=== PATIENT | male | born 1965 | race Caucasian/White ===

== ENCOUNTER → 2016-10-12 | Outpatient (CLI) | payer BC ==
--- NOTE | 2016-10-12 14:03 | REP ---
PA and lateral chest: Comparisons 06/28/2014. There is small round nodule like densities at the mid lung sahni bilaterally what on the right or the left. These are likely nipple artifacts has a aligned. Percent see with the location of body piercing and nipple jewelry on the comparison study. The lung sahni are clear. Cardiac size is normal. The abhi, mediastinum, and bony thorax are well. Impression: Negative PA and lateral chest Likely nipple artifacts bilaterally in the precise locations of body piercing nipple jewelry on the comparison study. Signed by Joel Erazo MD 10/12/2016 01:54 P
== END ==
LOC: M LRY 12:37
PROVIDERS: ATTEND Family Medicine
DX: J44.9 Chronic obstructive pulmonary disease, unspecified (principal)

== ENCOUNTER → 2016-10-18 | Outpatient (REF) | payer BC | LOC: M SFHCLERA 08:44 | PROVIDERS: ATTEND Family Medicine | DX: J00 Acute nasopharyngitis [common cold] (principal) ==

== ENCOUNTER 2017-04-04 10:54 | Outpatient (CLI) | payer BC ==
[~2017-04-04] VITALS: Ht 170.2 cm; Wt 95.3 kg
[~2017-04-04 10:54] MED LIST: ADVA115A INH; ALBU17IN INH
[2017-04-04] MEDS ORDERED: NS 1,000 ML IV ONE (11:00)
--- NOTE | 2017-04-04 12:53 | ROOR ---
Patient Name: Skip Gold Procedure Date: 04/04/2017 12:34 PM Date of : 1965 Age: 51 Room: [facility] Gender: Male Note Status: Finalized Procedure: Colonoscopy Indications: Screening for colorectal malignant neoplasm Providers: John FOX MD Referring MD: Emil Vivas MD Requesting Provider: Medicines: Monitored Anesthesia Care Complications: No immediate complications. Procedure: Pre-Anesthesia Assessment: - The heart rate, respiratory rate, oxygen saturations, blood pressure, adequacy of pulmonary ventilation, and response to care were monitored throughout the procedure. The Colonoscope was introduced through the anus and advanced to the cecum, identified by appendiceal orifice and ileocecal valve. The colonoscopy was performed without difficulty. The patient tolerated the procedure well. The quality of the bowel preparation was good. Findings: The perianal and digital rectal examinations were normal. Two sessile polyps were found in the sigmoid colon. The polyps were 3 to 4 mm in size. These polyps were removed with a cold snare. Resection and retrieval were complete. The exam was otherwise without abnormality on direct and retroflexion views. Impression: - Two 3 to 4 mm polyps in the sigmoid colon, removed with a cold snare. Resected and retrieved. - The examination was otherwise normal on direct and retroflexion views. Recommendation: - Telephone endoscopist for pathology results in 2 weeks. - If the pathology report reveals adenomatous tissue, then repeat the colonoscopy for surveillance in 5 years. - If the pathology report indicates hyperplastic polyp, then repeat colonoscopy for screening purposes in 10 years. John Fox MD John FOX MD 04/04/2017 12:53:06 PM This report has been signed electronically. Number of Addenda: 0 Note Initiated On: 04/04/2017 12:34 PM Estimated Blood Loss: Estimated blood loss: none.
[2017-04-04] MEDS ORDERED: PROPOFOL 500 MG/50 ML VIAL As Ordered ONE (13:06)
[2017-04-04] MEDS ORDERED: LIDOCAINE 2% INJ 100 MG/5 ML SDV (FOR ANES.) As Ordered ONE (13:06)
[2017-04-04 13:10] VITALS: BP 135/74
== END 2017-04-04 13:24 | disposition home or self-care (01) ==
LOC: M OPP 10:54
PROVIDERS: ATTEND Internal Medicine Gastroenterology
DX: Z12.11 Encounter for screening for malignant neoplasm of colon (principal); D12.5 Benign neoplasm of sigmoid colon; J45.909 Unspecified asthma, uncomplicated; Z79.899 Other long term (current) drug therapy; Z80.0 Family history of malignant neoplasm of digestive organs

== ENCOUNTER → 2017-06-07 | Outpatient (CLI) | payer BC ==
--- NOTE | 2017-06-08 06:55 | REP ---
RIGHT SHOULDER: CLINICAL: Chronic pain. TECHNIQUE: Internal rotation, external rotation, and Y view of the right shoulder. FINDINGS: Moderate arthritic degenerative changes at the acromioclavicular joint include cortical irregularity and subtle osteophyte formation as well as small well corticated loose bodies measuring up to approximately 3 mm. The subacromial space is normal. The glenohumeral joint appears intact and normal. The surrounding soft tissues are unremarkable. 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 Signed by Tahir Kan MD 06/09/2017 08:55 A
== END ==
LOC: M LRY 14:00
PROVIDERS: ATTEND Family Medicine
DX: G89.29 Other chronic pain (principal); M25.511 Pain in right shoulder; M19.011 Primary osteoarthritis, right shoulder

== ENCOUNTER → 2018-09-17 | Outpatient (REF) | payer BC ==
[2018-09-17 17:54] LABS: HEMOGLOBIN A1c 5.6 %
[2018-09-17 18:05] LABS: ALT/SGPT 33 U/L (12-78); BILIRUBIN,TOTAL 0.4 MG/DL (0.2-1.0); BLOOD UREA NITROGEN 10 MG/DL (7-18); CARBON DIOXIDE LEVEL 27 MEQ/L (21-32); CHLORIDE LEVEL 106 MEQ/L (98-107); CHOLESTEROL LEVEL 233 MG/DL (<200); CREATININE FOR GFR 0.87 MG/DL (0.70-1.30); GLOMERULAR FILTRATION RATE > 60.0 (>56); GLUCOSE, FASTING 113 MG/DL (70-100); HDL CHOLESTEROL 50 MG/DL (>40); LDL CHOLESTEROL 161 MG/DL (<100); NON-HDL-C 183 MG/DL; POTASSIUM SERUM 4.7 MEQ/L (3.5-5.1); SODIUM LEVEL 139 MEQ/L (136-145); TOTAL PROTEIN 7.5 GM/DL (6.4-8.2); TRIGLYCERIDES LEVEL 109 MG/DL (<150)
== END ==
LOC: M SFHCLERA 10:17
PROVIDERS: ATTEND Family Medicine
DX: I10 Essential (primary) hypertension (principal)

== ENCOUNTER → 2019-04-24 | Outpatient (REF) | payer BC ==
[2019-04-24 16:35] LABS: ALBUMIN 3.8 GM/DL (3.2-5.2); ALT/SGPT 29 U/L (12-78); BILIRUBIN,TOTAL 0.3 MG/DL (0.2-1.0); BLOOD UREA NITROGEN 12 MG/DL (7-18); CARBON DIOXIDE LEVEL 29 MEQ/L (21-32); CHLORIDE LEVEL 107 MEQ/L (98-107); CHOLESTEROL LEVEL 194 MG/DL (<200); CHOLESTEROL RISK RATIO 4.041 (<5); CREATININE FOR GFR 0.92 MG/DL (0.70-1.30); GLOMERULAR FILTRATION RATE > 60.0 (>56); GLUCOSE, FASTING 100 MG/DL (70-100); HDL CHOLESTEROL 48 MG/DL (>40); LDL CHOLESTEROL 125 MG/DL (<100); NON-HDL-C 146 MG/DL; POTASSIUM SERUM 4.9 MEQ/L (3.5-5.1); SODIUM LEVEL 140 MEQ/L (136-145); TOTAL PROTEIN 7.3 GM/DL (6.4-8.2); TRIGLYCERIDES LEVEL 107 MG/DL (<150)
[2019-04-24 16:52] LABS: HEMOGLOBIN A1c 5.6 %
== END ==
LOC: M SFHCLERA 11:44
PROVIDERS: ATTEND Family Medicine
DX: E78.5 Hyperlipidemia, unspecified (principal)

== ENCOUNTER → 2019-10-10 | Outpatient (REF) | payer BC ==
[2019-10-10 11:58] LABS: BLOOD UREA NITROGEN 9 MG/DL (7-18); CALCIUM LEVEL 8.9 MG/DL (8.5-10.1); CARBON DIOXIDE LEVEL 30 MEQ/L (21-32); CHLORIDE LEVEL 105 MEQ/L (98-107); GLOMERULAR FILTRATION RATE > 60.0 (>56); GLUCOSE, FASTING 98 MG/DL (70-100); POTASSIUM SERUM 4.4 MEQ/L (3.5-5.1); SODIUM LEVEL 139 MEQ/L (136-145)
== END ==
LOC: M SFHCLERA 09:57
PROVIDERS: ATTEND Family Medicine
DX: I10 Essential (primary) hypertension (principal)

== ENCOUNTER → 2020-03-12 | Outpatient (CLI) | payer BC ==
--- NOTE | 2020-04-01 08:06 | REP ---
SCROTAL ULTRASOUND: 03/12/20 CLINICAL: Chronic left testicular lump. COMPARISON: None available. TECHNIQUE: Real time culp scale and color Doppler evaluation using linear high frequency transducer. FINDINGS: The bilateral testicles are relatively normal in contour, size, echogenicity, shape and vascularity without evidence for torsion, infection/inflammatory process, or significant abnormality. The right testicle measures 4.2 x 2.3 x 2.6cm and few right epididymal head cysts are identified measuring up to 4mm. A small amount of right scrotal fluid is non-specific and likely incident. The left testicle measures 4.0 x 2.2 x 2.9cm and includes 2.4mm simple intratesticular cyst along with few epididymal head cysts measuring up to 2mm and small amount of left juliette scrotal fluid which is likely incidental. The patients palpable lump corresponds to mildly prominent but normal appearing epididymis. Incidental small appendix epididymis noted on the left. IMPRESSION: 1. A few small epididymal head cysts noted bilaterally along with 2.4mm left intratesticular simple cyst. 2. Palpable lump corresponds to relatively normal left epididymal body. 3. No further significant abnormalities noted. [facility]
== END ==
LOC: M RAD 07:42
PROVIDERS: ATTEND Family Medicine
DX: N50.3 Cyst of epididymis (principal); N44.2 Benign cyst of testis

== ENCOUNTER → 2020-10-02 | Outpatient (CLI) | payer BC ==
[2020-10-02 19:46] LABS: BASO % 0.2 % (0.0-1.0); EOS # 0.1 10^3/uL (0.0-0.5); EOS % 1.4 % (0.0-3.0); HEMATOCRIT 40.5 % (42.0-52.0); HEMOGLOBIN 14.3 g/dl (13.5-17.5); LYMPH # 1.6 10^3/uL (1.5-5.0); LYMPH % 27.4 % (24.0-44.0); MEAN CORPUSCULAR HEMOGLOBIN 31.8 pg (27.0-33.0); MEAN CORPUSCULAR HGB CONC 35.3 g/dl (32.0-36.5); MEAN CORPUSCULAR VOLUME 90.2 fl (80.0-96.0); MONO # 0.7 10^3/uL (0.0-0.8); MONO % 12.3 % (2.0-8.0); NEUTROPHILS # 3.3 10^3/uL (1.5-8.5); NEUTROPHILS % 58.3 % (36.0-66.0); PLATELET COUNT, AUTOMATED 195 10^3/uL (150-450); RED BLOOD COUNT 4.49 10^6/uL (4.30-6.10); WHITE BLOOD COUNT 5.7 10^3/uL (4.0-10.0)
[2020-10-02 20:16] LABS: ALT/SGPT 31 U/L (12-78); BILIRUBIN,TOTAL 0.5 MG/DL (0.2-1.0); BLOOD UREA NITROGEN 16 MG/DL (7-18); CALCIUM LEVEL 8.9 MG/DL (8.5-10.1); CARBON DIOXIDE LEVEL 27 MEQ/L (21-32); CHLORIDE LEVEL 104 MEQ/L (98-107); CHOLESTEROL LEVEL 210 MG/DL (<200); CREATININE FOR GFR 0.95 MG/DL (0.70-1.30); GLOMERULAR FILTRATION RATE > 60.0 (>56); GLUCOSE, FASTING 85 MG/DL (70-100); HDL CHOLESTEROL 45 MG/DL (>40); POTASSIUM SERUM 3.7 MEQ/L (3.5-5.1); SODIUM LEVEL 138 MEQ/L (136-145); TRIGLYCERIDES LEVEL 122 MG/DL (<150)
[2020-10-02 20:17] LABS: CHOLESTEROL RISK RATIO 4.666 (<5); LDL CHOLESTEROL 141 MG/DL (<100); NON-HDL-C 165 MG/DL; TOTAL PROTEIN 7.3 GM/DL (6.4-8.2)
[2020-10-02 20:35] LABS: HEMOGLOBIN A1c 5.5 %
== END ==
LOC: M WUC 15:43
PROVIDERS: ATTEND Family Medicine
DX: E78.5 Hyperlipidemia, unspecified (principal); Z68.32 Body mass index [BMI] 32.0-32.9, adult

== ENCOUNTER → 2021-04-30 | Outpatient (CLI) | payer BC ==
--- NOTE | 2021-05-03 18:23 | SLEEPHOME ---
"DATE: 04/30/2021 |ORDERED BY: FABIOLA Llamas Diagnostic home sleep testing was performed due to concern for the obstructive sleep apnea syndrome in this patient with a history of hypertension. For testing, a NIOX T3 respiratory monitoring device was used. Continuous record was made of pulse, oxygen saturation, air flow, chest and abdominal strain, and body position. Seven hours and 20 minutes of data were reviewed. During this interval, 39 respiratory events were identified of 10 seconds in duration or greater for a respiratory event index of 5.4. The events were primarily obstructive, more frequent but not exclusive to the supine posture. Baseline pulse rate was 70 beats per minute. Pulse rate ranged 53 to 107. Baseline saturation was 92%. Saturations fell to 83%. Testing was performed in both the supine and nonsupine positions. IMPRESSION: Abnormal home sleep testing with repetitive respiratory events and oxygen desaturations to 83% with a respiratory event index of 5.4 is consistent with the obstructive sleep apnea syndrome. RECOMMENDATION: The patient should be encouraged to undergo a formal sleep evaluation. cc: JESS ASHER DO"
== END ==
LOC: M SLEEP HO 11:04
PROVIDERS: ATTEND Nurse Practitioner Family
DX: R06.83 Snoring (principal)

== ENCOUNTER → 2021-06-28 | Outpatient (CLI) | payer BC | LOC: M RAD 15:39 | PROVIDERS: ATTEND Family Medicine | DX: Z12.2 Encounter for screening for malignant neoplasm of respiratory organs (principal); F17.210 Nicotine dependence, cigarettes, uncomplicated ==

== ENCOUNTER → 2022-03-30 | Outpatient (CLI) | payer BC ==
[~2022-03-30] MED LIST changes: +ALBU8.5H INH; +LISI40TA4 PO
== END ==
LOC: M LABSMTC 08:59
PROVIDERS: ATTEND Anesthesiology
DX: Z01.818 Encounter for other preprocedural examination (principal); Z11.52 Encounter for screening for COVID-19

== ENCOUNTER → 2022-07-08 | Outpatient (CLI) | payer BC ==
[2022-07-08 19:59] LABS: BLOOD UREA NITROGEN 10 MG/DL (9-23); CALCIUM LEVEL 9.3 MG/DL (8.5-10.1); CARBON DIOXIDE LEVEL 31 MMOL/L (20-31); CHLORIDE LEVEL 100 MMOL/L (98-107); CHOLESTEROL LEVEL 184 MG/DL (<200); CHOLESTEROL RISK RATIO 4.01 (<5); GLOMERULAR FILTRATION RATE > 60.0 (>56); GLUCOSE, FASTING 119 MG/DL (60-100); HDL CHOLESTEROL 45.8 MG/DL (>40); LDL CHOLESTEROL 96.6 MG/DL (<100); NON-HDL-C 138 MG/DL; POTASSIUM SERUM 3.8 MMOL/L (3.5-5.1); SODIUM LEVEL 138 MMOL/L (136-145); TRIGLYCERIDES LEVEL 208 MG/DL (<150)
[2022-07-08 20:06] LABS: HEMOGLOBIN A1c 5.2 % (4.0-6.0)
== END ==
LOC: M WUC 15:27
PROVIDERS: ATTEND Family Medicine
DX: Z68.32 Body mass index [BMI] 32.0-32.9, adult (principal)

== ENCOUNTER → 2022-09-13 | Outpatient (CLI) | payer BC | LOC: M RAD 09:37 | PROVIDERS: ATTEND Family Medicine | DX: Z87.891 Personal history of nicotine dependence (principal) ==

== ENCOUNTER → 2023-11-17 | Outpatient (CLI) | payer BC | LOC: M RAD 15:34 | PROVIDERS: ATTEND Family Medicine | DX: F17.211 Nicotine dependence, cigarettes, in remission (principal) ==

== ENCOUNTER → 2025-03-31 | Outpatient (CLI) | payer BC ==
[~2025-03-31] MED LIST changes: +LISI40TA10 PO; -LISI40TA4 PO
[2025-03-31 18:04] LABS: OSMOLALITY SERUM 284 MOSM/KG (275-295)
[2025-03-31 18:10] LABS: ALT/SGPT 26 U/L (7.0-40); AST/SGOT 19 U/L (<34); CALCIUM LEVEL 8.8 MG/DL (8.5-10.1); CARBON DIOXIDE LEVEL 27 MMOL/L (20-31); CHLORIDE LEVEL 98 MMOL/L (98-107); CREATININE FOR GFR 0.90 MG/DL (0.70-1.30); GLOMERULAR FILTRATION RATE > 90.0 (>56); POTASSIUM SERUM 3.7 MMOL/L (3.5-5.1); SODIUM LEVEL 134 MMOL/L (136-145)
[2025-03-31 18:20] LABS: SODIUM,RANDOM URINE 112 MMOL/L
[2025-03-31 18:24] LABS: APPEARANCE, URINE CLEAR (CLEAR); BACTERIA, URINE AUTO NEGATIVE (NEGATIVE); BILIRUBIN, URINE AUTO NEGATIVE (NEGATIVE); BLOOD, URINE BLOOD NEGATIVE (NEGATIVE); GLUCOSE, URINE (UA) AUTO NEGATIVE (NEGATIVE); KETONE, URINE AUTO NEGATIVE (NEGATIVE); LEUKOCYTE ESTERASE, URINE AUTO NEGATIVE (NEGATIVE); NITRITE, URINE AUTO NEGATIVE (NEGATIVE); PROTEIN, URINE AUTO NEGATIVE (NEGATIVE); RBC, URINE AUTO 0 /HPF (0-3); SPECIFIC GRAVITY URINE AUTO 1.011 (1.002-1.035); SQUAMOUS EPITHELIAL CELL UR AU 0 /HPF (0-6); UROBILINOGEN, URINE AUTO 0.2 mg/dL (0.0-2.0); WBC, URINE AUTO 0 /HPF (0-3)
== END ==
LOC: M WUC 14:56
PROVIDERS: ATTEND Family Medicine
DX: E87.1 Hypo-osmolality and hyponatremia (principal)